=== PATIENT | male | born 1980 | race Two or more races ===

== ENCOUNTER 2021-02-28 23:19 | Emergency (ER) | payer OTHER ==
[~2021-02-28] VITALS: Ht 170.2 cm; Wt 79.4 kg
--- NOTE | 2021-02-28 23:36 | NUR ---
PT BIBSELF C/O HIGH BLOOD PRESSURE IN THE 160S. PT [id number] BREATHING EVENLY AND UNLABORED. UPON ASSESSMENT PT NORMOTENSIVE 138/89. PT ATTACHED TO MONITOR AND POX. PT GIVEN BLANKET AND CALL LIGHT WITHIN REACH.
--- NOTE | 2021-02-28 23:39 | NUR ---
LAW VARGAS AT PT'S BEDSIDE
[2021-03-01 00:04] LABS: BASOPHILS % (AUTO) 0.4 % (0.0-2.0); HEMATOCRIT 49 % (39-51); HEMOGLOBIN 16.3 g/dL (13.5-17.5); LYMPHOCYTES # (AUTO) 1.3 K/uL (0.8-4.8); LYMPHOCYTES % (AUTO) 10.3 % (20.0-44.0); MEAN CORPUSCULAR HGB CONC 33 g/dl (31.0-36.0); MEAN CORPUSCULAR VOLUME 80 fL (80-96); MONOCYTES # (AUTO) 0.3 K/uL (0.1-1.30); MONOCYTES % (AUTO) 2.7 % (2.0-12.0); NEUTROPHILS # (AUTO) 10.5 K/uL (1.8-8.9); NEUTROPHILS % (AUTO) 86.6 % (43.0-81.0); PLATELET COUNT (AUTO) 291 K/uL (150-450); RED BLOOD CELL COUNT(AUTO) 6.09 MIL/uL (4.5-6.0); WHITE BLOOD COUNT (AUTO) 12.2 K/uL (4.3-11.0)
[2021-03-01 00:12] LABS: CALCIUM, SERUM 8.7 mg/dL (8.5-10.1); CARBON DIOXIDE 28 mmol/L (21-32); CHLORIDE 101 mmol/L (98-107); CREATININE 1.2 mg/dL (0.6-1.3); GLUCOSE 155 mg/dL (74-106); POTASSIUM 4.2 mmol/L (3.5-5.1); SODIUM SERUM 139 mmol/L (136-145); UREA NITROGEN, BLOOD 14 mg/dL (7-18)
--- NOTE | 2021-03-01 00:22 | NUR ---
RETURNED FROM CT
--- NOTE | 2021-03-01 00:53 | NUR ---
CALLED [facility] TO HAVE IMAGES READ
--- NOTE | 2021-03-01 02:07 | NUR ---
CALLED [facility] TO HAVE IMAGE FAXED OVER.
--- NOTE | 2021-03-01 02:20 | NUR ---
Patient discharged to home in stable condition. Written and verbal after care instructions given. Patient verbalizes understanding of instruction. pT ambulatory with a steady gait
[2021-03-01 02:27] VITALS: BP 133/89
[2021-03-01 14:14] LABS: LYMPHOCYTES % (MANUAL) 12 % (16-48); MONOCYTES % (MANUAL) 2 % (0-11.0); NEUTROPHILS % (MANUAL) 86 (42-76)
== END 2021-03-01 02:20 | disposition home or self-care (01) ==
LOC: ER 23:25
DX: R51.9 Headache, unspecified (principal); R42 Dizziness and giddiness
CPT/HCPCS: 36415; 70450-TC; 80048-TC; 84484-TC; 85025-TC